=== PATIENT | female | born 1970 | race Caucasian/White ===

== ENCOUNTER 2016-05-08 08:13 | Emergency (ER) | payer OTHER ==
[2016-05-08 08:13] VITALS: BMI 25.7
[2016-05-08] MEDS ORDERED: Naproxen 550 mg Tab PO STA (09:09)
[2016-05-08 09:29] LABS: RBC URINE 4 /hpf (0-3); URINE BACTERIA FEW (<OCC); URINE BILIRUBIN NEGATIVE (NEGATIVE); URINE BLOOD 1+ (NEGATIVE); URINE COLOR Yellow (YELLOW); URINE GLUCOSE (UA) NORMAL (Normal); URINE KETONE NEGATIVE (NEGATIVE); URINE LEUKOCYTE ESTERASE 1+ Leu/uL (Negative); URINE PROTEIN NEGATIVE (NEGATIVE); URINE UROBILINOGEN NORMAL mg/dL (0.2-1.0); WBC URINE 3 /hpf (0-5)
[2016-05-08] MEDS ORDERED: Naproxen 550 mg Tab PO ONE (09:48)
--- NOTE | 2016-05-08 10:53 | C.PDOC ---
History Of Present Illness 45 year old female presents to the ED with complaints of left sided back pain since last night. Patient denies trauma, radiating of pain, dysuria, urinary frequency, history of kidney stones, or any other complaints at this time. Time Seen by Provider: 05/08/16 08:47 Chief Complaint (Nursing): Back Pain History Per: Patient History/Exam Limitations: no limitations Onset/Duration Of Symptoms: Days Current Symptoms Are (Timing): Still Present Quality Of Discomfort: "Pain" Severity: Mild Previous Symptoms: None Associated Symptoms: None Past Medical History Reviewed: Historical Data, Nursing Documentation, Vital Signs Vital Signs: Last Vital Signs Temp 98.1 F 05/08/16 11:13 Pulse 59 L 05/08/16 11:13 Resp 18 05/08/16 11:13 BP 115/77 05/08/16 11:13 Pulse Ox 98 05/08/16 11:13 - Medical History PMH: Hypothyroidism Family History: States: Unknown Family Hx - Social History Hx Tobacco Use: No Hx Alcohol Use: No Hx Substance Use: No - Immunization History Hx Tetanus Toxoid Vaccination: No Hx Influenza Vaccination: No Hx Pneumococcal Vaccination: No Review Of Systems Except As Marked, All Systems Reviewed And Found Negative. Constitutional: Negative for: Fever, Chills Gastrointestinal: Negative for: Vomiting, Abdominal Pain Genitourinary: Negative for: Dysuria, Frequency, Incontinence Musculoskeletal: Positive for: Back Pain (+Left sided back pain). Negative for : Neck Pain Skin: Negative for: Rash Neurological: Negative for: Weakness, Numbness Physical Exam - Physical Exam Appears: Non-toxic, Other (+Mild painful distress) Skin: Normal Color, Warm, Dry Head: Atraumatic, Normacephalic Eye(s): bilateral: Normal Inspection Oral Mucosa: Moist Neck: Supple Chest: Symmetrical, No Deformity Cardiovascular: Rhythm Regular, No Murmur Respiratory: Normal Breath Sounds, No Accessory Muscle Use, No Rales, No Rhonchi , No Wheezing Gastrointestinal/Abdominal: Soft, No Tenderness, No Distention Back: No Vertebral Tenderness, Paraspinal Tenderness (+Left paralumbar tenderness) Extremity: Normal ROM Neurological/Psych: Oriented x3, Normal Speech, Normal Cognition ED Course And Treatment O2 Sat by Pulse Oximetry: 99 (Room air) Pulse Ox Interpretation: Normal - Other Rad LS Spine AP/LAT X-Ray: Viewed By Me, Read By Radiologist Interpretation: Creator : Tay Jordan MD. Dictator : Tay Jordan MD. Financial Administrator : [employer] Care Worker : Tay Jordan MD. Approver2 : Report Date : 04/2016 11:03:12. My Comment : . This report is currently processing and HAS NOT BEEN OFFICIALLY SIGNED BY THE PHYSICIAN - ESTIMATED TIME OF APPROVAL IS 05/08/2016 11:08. PROCEDURE: Radiographs of the Lumbar Spine. HISTORY: pain. COMPARISON: No prior. FINDINGS: BONES: Normal alignment. No listhesis. No fracture. DISC SPACES: Unremarkable. OTHER FINDINGS: None. IMPRESSION: Unremarkable radiographs of the lumbar spine. Progress Note: LS Spine AP/LAT, Blood work, and Urinalysis ordered and reviewed. Patient treated with Naproxen and Flexeril. On reassessment, patient is resting comfortably, with improvement of back pain. No incontinence. No numbness. No paresthisias. Pt feels comfortable and therefore will be discharged. Insturcted to return to ER if symptoms persist or worsen. Patient is ambulatory in the emergency department with no signs of discomfort. Patient feels comfortable going home and was given Rx and advised to follow up with her PMD in 1-3 days. Disposition - Disposition Disposition: HOME/ ROUTINE Disposition Time: 10:53 Condition: STABLE Additional Instructions: Follow up with primary medical doctor in 1-3 days without fail for further evaluation. Take medications as prescribed. Return to the emergency department at any time if symptoms persist or worsen. Prescriptions: Cyclobenzaprine [Cyclobenzaprine HCl] 10 mg PO TID #20 tab Naproxen [Naprosyn] 1 tab PO BID PRN #20 tab PRN Reason: Pain Instructions: Acute Low Back Pain (ED) - Clinical Impression Clinical Impression: Low back pain
--- NOTE | 2016-05-08 11:05 | RAD ---
PROCEDURE: Radiographs of the Lumbar Spine. HISTORY: pain COMPARISON: No prior. FINDINGS: BONES: Normal alignment. No listhesis. No fracture. DISC SPACES: Unremarkable. OTHER FINDINGS: None. IMPRESSION: Unremarkable radiographs of the lumbar spine.
[2016-05-08 11:14] VITALS: BP 115/77; PULSE 59; RESP 18; TEMP 98.1
[2016-05-08 12:44] VITALS: O2SAT 99
== END 2016-05-08 11:14 | disposition home or self-care (01) ==
LOC: C.ER 08:13
DX: M54.5 Low back pain (principal)